=== PATIENT | female | born 1985 ===

== ENCOUNTER 2021-04-01 22:57 | Observation (INO) | payer OTHER ==
[2021-04-02] MEDS ORDERED: Lidocaine 1% 50 ML MDV INJECT PRN (00:28)
[2021-04-02] MEDS ORDERED: Sodium Chloride 0.9% 20 ML SDV IV PRN (00:28)
[2021-04-02] MEDS ORDERED: Butorphanol 1 MG/ML SDV IVPUSH PRN (00:28)
[2021-04-02] MEDS ORDERED: Carboprost Tromethamine 250 MCG/1 ML Amp IM PRN (00:28)
[2021-04-02] MEDS ORDERED: Misoprostol 200 MCG Tab PO PRN (00:28)
[2021-04-02] MEDS ORDERED: Water For Irrigation,Sterile 1,000 ML Container IRR PRN (00:28)
[2021-04-02] MEDS ORDERED: Sodium Chloride 0.9% 10 ML Syringe FLUSH PRN (00:28)
[2021-04-02] MEDS ORDERED: Sodium Chloride 0.9% 2.5 ML Syringe FLUSH PRN (00:28)
[2021-04-02] MEDS ORDERED: Tranexamic Acid 1,000 MG in Sodium Chloride 0.9% 100 ML IV PRN (00:28)
[2021-04-02] MEDS ORDERED: Ampicillin 2 GM in Sodium Chloride 0.9% 100 ML IV ONE (00:28)
[2021-04-02] MEDS ORDERED: Methylergonovine 0.2 MG/1 ML Amp IM PRN (00:28)
[2021-04-02] MEDS ORDERED: Oxytocin/0.9 % Sodium Chloride 30 UNIT/500 ML BAG IV SCH (00:30)
[2021-04-02] MEDS ORDERED: Lactated Ringers 1,000 ML IV SCH (00:30)
[2021-04-02] MEDS ORDERED: Betamethasone Acetate/Betamethasone Sod Phosphate 30 MG/5 ML MDV IM SCH ×2 (02:00→02:40)
[2021-04-02] MEDS ORDERED: Betamethasone Acetate/Betamethasone Sod Phosphate 30 MG/5 ML MDV ONE (02:28)
[2021-04-02] MEDS: Ampicillin 1 GM in Sodium Chloride 0.9% 50 ML IV SCH ×2 (05:01→08:43)
[2021-04-03 13:06] LABS: C.TRACHOMATIS BY TMA Negative (Negative); N.GONORRHOEAE BY TMA Negative (Negative)
== END 2021-04-02 10:05 | disposition left against medical advice (07) ==
LOC: MW.OB 22:57 → MW.OBCHECK 22:57 → MW.OB 04-02 00:29 → MW.OBCHECK 04-02 00:29
PROVIDERS: ADMIT Obstetrics & Gynecology; ATTEND Obstetrics & Gynecology
DX: O42.013 Preterm premature rupture of membranes, onset of labor within 24 hours of rupture, third trimester (principal); O09.33 Supervision of pregnancy with insufficient antenatal care, third trimester; O98.413 Viral hepatitis complicating pregnancy, third trimester; B19.20 Unspecified viral hepatitis C without hepatic coma; Z88.1 Allergy status to other antibiotic agents; Z20.822 Contact with and (suspected) exposure to COVID-19; Z3A.34 34 weeks gestation of pregnancy
CPT/HCPCS: 59025; 76815; 80305; 81001; 84112; 85027; 86592; 86762; 86803; 86850; 86900; 86901; 87340; 87389; 87491; 87522; 87591; 87635; 87653; 96365; 96372; 96376; G0378; J0290; J0702; J7120; 36415; U0002